=== PATIENT | female | born 1975 | race Caucasian/White ===

== ENCOUNTER → 2016-12-06 | Outpatient (CLI) | payer BC ==
[~2016-12-06] MED LIST: AMOX500C PO; CETI10TA22 PO
--- NOTE | 2016-12-06 13:46 | RAD ---
Indication positive TB skin test. Negative chest x-ray. No symptoms. PA and lateral views of the chest were obtained. No prior imaging of the chest is available. The heart and pulmonary vessels appear normal. There is no acute parenchymal infiltrate. There is no pleural fluid or pneumothorax. Active disease is not seen and evidence for prior significant granulomatous disease is absent. The bony structures appear grossly intact. IMPRESSION: No acute or significant finding in the chest. No evidence of active granulomatous disease
== END | disposition home or self-care (01) ==
LOC: DXRADRC 13:10
PROVIDERS: ATTEND Nurse Practitioner Family
DX: R76.11 Nonspecific reaction to tuberculin skin test without active tuberculosis (principal)
CPT/HCPCS: 71020

== ENCOUNTER 2020-11-16 21:04 | Emergency (ER) | payer BC, OTHER ==
[~2020-11-16] VITALS: Ht 167.6 cm; Wt 94.8 kg
[~2020-11-16 21:04] MED LIST changes: -CETI10TA22 PO; +CETI10TA74 PO
--- NOTE | 2020-11-16 22:05 | RAD ---
XR CHEST 1V 11/16/2020 9:36 PM INDICATION: Shortness of breath COMPARISON: 12/06/2016 TECHNIQUE: Portable frontal view of the chest is provided. FINDINGS: The cardiomediastinal silhouette is within normal limits. Linear density in the right midlung may rep resent atelectasis versus scarring. Trace left pleural effusion with adjacent compressive atelectasis versus infiltrate. No pulmonary vas cular congestion or pneumothorax. No suspicious osseous abnormality. IMPRESSION: Trace left pleural effusion with adjacent compressive atelectasis versus infiltrate. Electronically signed by: Whit Acuña MD (11/16/2020 10:03 PM) [facility]
--- NOTE | 2020-11-16 22:15 | EKG ---
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
[2020-11-16] MEDS ORDERED: MIDAZOLAM HCL PF 5 MG/5 ML VIAL. IV ONE (22:30)
[2020-11-16] MEDS ORDERED: IOHEXOL 350 MG/ML 100 ML VIAL. IV ONE (22:30)
[2020-11-16] MEDS ORDERED: CONTRAST GIVEN. MC PRN (22:30)
[2020-11-16 23:11] LABS: BASO % 1 % (0-3); EOS # 0.2 x10^3/uL (0.0-0.7); EOS % 3 % (0-3); HEMATOCRIT 37.2 % (36.0-47.0); HEMOGLOBIN 12.6 g/dL (12.0-15.5); LYMPH # 2.9 x10^3/uL (1.0-4.8); LYMPH % 50 % (24-48); MEAN CORPUSCULAR HEMOGLOBIN 30 pg (25-35); MEAN CORPUSCULAR HGB CONC 34 g/dL (31-37); MEAN CORPUSCULAR VOLUME 89 fL (79-100); MONO # 0.6 x10^3/uL (0.0-1.1); MONO % 11 % (0-9); NEUT # 2.1 x10^3uL (1.8-7.7); NEUT % 36 % (31-73); PLATELET COUNT 263 x10^3/uL (140-400); RED BLOOD COUNT 4.19 x10^6/uL (3.50-5.40); RED CELL DISTRIBUTION WIDTH 15.1 % (11.5-14.5); WHITE BLOOD COUNT 5.8 x10^3/uL (4.0-11.0)
[2020-11-16 23:15] LABS: CALCIUM 8.7 mg/dL (8.5-10.1); CREATININE 0.9 mg/dL (0.6-1.0)
--- NOTE | 2020-11-16 23:18 | PHYS DOC ---
Past History Past Medical History: Cancer, Other Past Surgical History: Hysterectomy, Tubal ligation, Other Additional Past Surgical Histo: EYE Smoking: Non-smoker Alcohol Use: None Drug Use: None Adult General Chief Complaint Chief Complaint: SHORTNESS OF BREATH HPI HPI Patient is a 45-year-old female who presents to the emergency department with a chief complaint of shortness of breath. States he has had intermittent shortness of breath over the last week but today had an acute worsening of her shortness of breath. States if she gets up and walks around it exacerbates it. States she is never had anything like this before. States she went to the urgent care and was given some albuterol and other things which did not help. Denies any recent travel, illnesses, fevers, surgeries, Covid/flu/cold symptoms, chest pain, abdominal pain, nausea, vomiting, dysuria, hematuria or blood in the stool. Denies any history of VTE. Denies any tobacco use or contraception use. Review of Systems Review of Systems Constitutional: Denies fever or chills [] Eyes: Denies change in visual acuity, redness, or eye pain [] HENT: Denies nasal congestion or sore throat [] Respiratory: Denies cough or shortness of breath [] Cardiovascular: No additional information not addressed in HPI [] GI: Denies abdominal pain, nausea, vomiting, bloody stools or diarrhea [] : Denies dysuria or hematuria [] Musculoskeletal: Denies back pain or joint pain [] Integument: Denies rash or skin lesions [] Neurologic: Denies headache, focal weakness or sensory changes [] Endocrine: Denies polyuria or polydipsia [] All other systems were reviewed and found to be within normal limits, except as documented in this note. Current Medications Current Medications Current Medications Medications (Trade) Dose Ordered Sig/Chepe Start Time Stop Time Status Last Admin Dose Admin Info (Do NOT chart on this entry -- for MONITORING) 1 each PRN DAILY PRN 11/16/20 22:30 11/18/20 22:29 Iohexol (Omnipaque 350 Mg/ml) 100 ml 1X ONCE 11/16/20 22:30 11/16/20 22:31 DC 11/16/20 22:54 100 ML Midazolam HCl (Versed) 3 mg 1X ONCE 11/16/20 22:30 11/16/20 22:31 DC 11/16/20 22:46 3 MG Allergies Allergies Allergies Coded Allergies Type Severity Reaction Last Updated Verified No Known Drug Allergies 02/11/14 No Physical Exam Physical Exam Constitutional: Well developed, well nourished, no acute distress, non-toxic appearance. [] HENT: Normocephalic, atraumatic, bilateral external ears normal, oropharynx moist, no oral exudates, nose normal. [] Eyes: PERRLA, EOMI, conjunctiva normal, no discharge. [] Neck: Normal range of motion, no tenderness, supple, no stridor. [] Cardiovascular:Heart rate regular rhythm, no murmur [] Lungs & Thorax: Bilateral breath sounds clear to auscultation [] Abdomen: Bowel sounds normal, soft, no tenderness, no masses, no pulsatile masses. [] Skin: Warm, dry, no erythema, no rash. [] Back: No tenderness, no CVA tenderness. [] Extremities: No tenderness, no cyanosis, no clubbing, ROM intact, no edema. [] Neurologic: Alert and oriented X 3, normal motor function, normal sensory function, no focal deficits noted. [] Psychologic: Affect normal, judgement normal, mood normal. [] Current Patient Data Vital Signs Vital Signs Date Time Temp Pulse Resp B/P (MAP) Pulse Ox O2 Delivery O2 Flow Rate FiO2 11/16/20 21:14 98.4 103 16 118/84 (95) 94 Room Air Lab Results Laboratory Tests Test 11/16/20 21:35 11/16/20 22:45 D-Dimer (Susan) 2.76 mg/L (0.00-0.50) H Troponin I Quantitative < 0.017 ng/mL (0-0.055) White Blood Count 5.8 x10^3/uL (4.0-11.0) Red Blood Count 4.19 x10^6/uL (3.50-5.40) Hemoglobin 12.6 g/dL (12.0-15.5) Hematocrit 37.2 % (36.0-47.0) Mean Corpuscular Volume 89 fL (79-100) Mean Corpuscular Hemoglobin 30 pg (25-35) Mean Corpuscular Hemoglobin Concent 34 g/dL (31-37) Red Cell Distribution Width 15.1 % (11.5-14.5) H Platelet Count 263 x10^3/uL (140-400) Neutrophils (%) (Auto) 36 % (31-73) Lymphocytes (%) (Auto) 50 % (24-48) H Monocytes (%) (Auto) 11 % (0-9) H Eosinophils (%) (Auto) 3 % (0-3) Basophils (%) (Auto) 1 % (0-3) Neutrophils # (Auto) 2.1 x10^3uL (1.8-7.7) Lymphocytes # (Auto) 2.9 x10^3/uL (1.0-4.8) Monocytes # (Auto) 0.6 x10^3/uL (0.0-1.1) Eosinophils # (Auto) 0.2 x10^3/uL (0.0-0.7) Basophils # (Auto) 0.0 x10^3/uL (0.0-0.2) EKG EKG Rate of 106, QRS of 84, QTc 424, no STEMI [] Radiology/Procedures Radiology/Procedures []RS Compliance Statement: One or more of the following individualized dose reduction techniques were utilized for this examination: 1. Automated exposure control 2. Adjustment of the mA and/or kV according to patient size 3. Use of iterative reconstruction technique CTA CHEST 11/16/2020 10:40 PM INDICATION: Shortness of breath, elevated d-dimer COMPARISON: None available TECHNIQUE: Axial CT images of the chest were obtained after the intravenous administration of nonionic contrast. Coronal and sagittal reformats are provided. Maximum intensity projection images of the thoracic vasculature are provided. FINDINGS: The thyroid gland is normal in appearance. There are no pathologically enlarged axillary, mediastinal or hilar lymph nodes. The heart size is within normal limits. No significant pericardial effusion. Thoracic aorta is normal in course and caliber. There is adequate opacification of the pulmonary arterial system. There there are no filling defects within the pulmonary arterial system to suggest acute or chronic pulmonary embolus. There are no suspicious solid noncalcified pulmonary nodules. Consolidation identified in the medial right lung base and left lung base and inferior lingula. There are no pleural effusions. No pulmonary vascular congestion or pneumothorax. Cholelithiasis. Mild hepatic steatosis. No suspicious osseous lesions are visualized. IMPRESSION: There is no evidence for acute or chronic pulmonary embolism. Consolidative changes identified within the inferior lingula and bilateral lung bases which may represent atelectasis versus infiltrates. Cholelithiasis. Mild hepatic steatosis. Electronically signed by: Whit Acuña MD (11/16/2020 11:16 PM) [facility] Heart Score C/O Chest Pain: No Risk Factors: Risk Factors: DM, Current or recent (<one month) smoker, HTN, HLP, family history of CAD, obesity. Risk Scores: Risk Factors: DM, Current or recent (<one month) smoker, HTN, HLP, family history of CAD, obesity. Course & Med Decision Making Course & Med Decision Making Patient is a 45-year-old female who presents with a chief complaint of shortness of breath intermittently over the last week with acute worsening today. Vital signs notable for tachycardia, tachypnea. Physical exam noted above. EKG noted above and not concerning. Troponin not concerning. Low risk Wells. Elevated D-dimer. Laboratory analysis notable for hypokalemia. Treated hypokalemia in the ED. [] Dragon Disclaimer Dragon Disclaimer This electronic medical record was generated, in whole or in part, using a voice recognition dictation system. Departure Departure: Impression: Primary Impression: Shortness of breath Additional Impression: Pneumonia Disposition: 01 HOME / SELF CARE / HOMELESS Condition: GOOD Referrals: JANIS SESAY MD (PCP) Patient Instructions: Pneumonia, Adult Additional Instructions: Please read all the attached information very carefully. It appears you have findings on your CT scan suggestive of pneumonia and were started on Augmentin in the emergency department. Your potassium was also low and you are given oral potassium replacement. Please take your antibiotics as prescribed. Please be sure to take a daily One-A-Day vitamin. Please call your primary care physician first thing in the morning to update on your ED visit and set up a follow-up as soon as you can. Please come back to the emergency department immediately with new or concerning symptoms as discussed. Problem Qualifiers LORENZA COULTER MD November 16, 2020 23:18
[2020-11-16 23:22] LABS: POTASSIUM 2.5 mmol/L (3.5-5.1)
[2020-11-16] MEDS ORDERED: MAGNESIUM OXIDE 400 MG TABLET PO ONE (23:30)
[2020-11-16] MEDS ORDERED: MAGNESIUM SULFATE 1GM 100 ML IV ONE (23:30)
[2020-11-16] MEDS ORDERED: POTASSIUM CHLORIDE 20MEQ 100 ML IV SCH (23:30)
[2020-11-16] MEDS ORDERED: AMOX1TAB61 PO (23:30)
[2020-11-16] MEDS ORDERED: POTASSIUM CHLORIDE 20 MEQ TABLET.ER. PO ONE (23:30)
[2020-11-16] MEDS ORDERED: POTASSIUM CHLORIDE 10MEQ 100 ML IV SCH (23:30)
[2020-11-16] MEDS ORDERED: AMOXICILLIN/K CLAV 875/125MG TABLET. PO ONE (23:30)
[2020-11-16 23:55] VITALS: BP 102/73
== END 2020-11-16 23:55 | disposition home or self-care (01) ==
LOC: ER 21:04
DX: J18.9 Pneumonia, unspecified organism (principal); Z98.51 Tubal ligation status; Z90.710 Acquired absence of both cervix and uterus
CPT/HCPCS: 36415; 71045; 71275; 80048; 84484; 85025; 85379; 93005; 96374; 99285; J2250; Q9967